=== PATIENT | female | born 1945 | race Caucasian/White ===

== ENCOUNTER → 2017-03-07 | Outpatient (CLI) | payer OTHER | END | disposition home or self-care (01) | LOC: PCVCCLINIC 14:54 | PROVIDERS: ATTEND Internal Medicine | DX: I10 Essential (primary) hypertension (principal); E78.5 Hyperlipidemia, unspecified; R93.1 Abnormal findings on diagnostic imaging of heart and coronary circulation; I25.10 Atherosclerotic heart disease of native coronary artery without angina pectoris; Z87.891 Personal history of nicotine dependence; Z79.82 Long term (current) use of aspirin; Z79.899 Other long term (current) drug therapy | CPT/HCPCS: 80061; 93005; G0463 ==

== ENCOUNTER → 2017-04-18 | Outpatient (CLI) | payer OTHER ==
[~2017-04-18] MED LIST: REGADENOSON 0.4 MG/5 ML DISP.SYRIN. IV ONE
--- NOTE | 2017-04-18 09:39 | PCVCIMAG ---
APPROVED REPORT Study performed: 04/18/2017 08:30:15 EXAM: Comprehensive 2D, Doppler, and color-flow Echocardiogram Status: routine Other Information Study Quality: Good Indications Hypertension/HDD Dyspnea, Abnormal Calcium Score 2D Dimensions IVSd: 8.22 (7-11mm)LVOT Diam: 20.31 (18-24mm) LVDd: 47.04 mm PWd: 8.63 (7-11mm)Ascending Ao: 29.61 (22-36mm) LVDs: 25.68 (25-40mm) Left Atrium: 36.94 (27-40mm) Aortic Root: 27.16 mm LV Single Plane 4CH: 63.19 % LV Single Plane 2CH: 61.53 %Myers's LVEF: 62.36 % Biplane EF: 62.2 % Volumes Left Atrial Volume (Systole) Single Plane 4CH: 41.09 mLSingle Plane 2CH: 39.00 mL LA ESV Index: 24.00 mL/m2 Aortic Valve AoV Peak Shiv.: 1.58 m/s AO Peak Gr.: 9.94 mmHgLVOT Max P.82 mmHg LVOT Max V: 1.10 m/s SARA Vmax: 2.25 cm2 Mitral Valve E/A Ratio: 0.8 MV Decel. Time: 218.17 ms MV E Max Shiv.: 0.86 m/s MV A Shiv.: 1.08 m/s IVRT: 83.04 ms TDI E/Medial E': 0.11 E': 10.00Medial E' Shiv.: 8.00 m/s Pulmonary Valve PV Peak Gr.: 3.11 mmHg Pulmonary Vein P Vein S: 0.79 m/sP Vein A: 0.31 m/s P Vein D: 0.55 m/sP Vein A Dur.: 41.5 msec P Vein S/D Ratio: 1.44 Tricuspid Valve TR Peak Shiv.: 2.90 m/s TR Peak Gr.: 33.74 mmHg Left Ventricle The left ventricle is normal size. There is normal LV segmental wall motion. There is normal left ventricular wall thickness. Left ventricular systolic function is normal. The left ventricular ejection fraction is within the normal range. LVEF is 60%. Grade I diastolic dysfunction Right Ventricle The right ventricle is normal size. The right ventricular systolic function is normal. Atria The left atrium size is mildly dilated The right atrium size is mildly dilated Aortic Valve The aortic valve is normal in structure. No aortic regurgitation is present. There is no aortic valvular stenosis. Mitral Valve The mitral valve is normal in structure. There is no mitral valve regurgitation noted. No evidence of mitral valve stenosis. Tricuspid Valve The tricuspid valve is normal in structure. Mild tricuspid regurgitation. Pulmonary artery pressure is 41mmhg. Pulmonic Valve The pulmonary valve is normal in structure. There is no pulmonic valvular regurgitation. Great Vessels The aortic root is normal in size. IVC is normal in size and collapses with >50% inspiration Pericardium There is no pericardial effusion. <Conclusion> Left ventricular systolic function is normal. There is normal LV segmental wall motion. LVEF is 60%. Grade I diastolic dysfunction Both atria are mildly dilated The aortic valve is normal in structure. No aortic valvular stenosis or insufficiency. The mitral valve is normal in structure, no mitral valve regurgitation noted. Pulmonary artery pressure of 35-40mmHg There is no pericardial effusion.
--- NOTE | 2017-04-18 15:58 | PCVCIMAG ---
APPROVED REPORT Exam: Nuclear Stress Test Indication: CAD , Dyspnea Patient Location: Out-Patient Stress Nurse: Magdalena Sahu RN, CHARLENE Bartholomew Tech:Yvonne Dagoberto [facility] Ht: 5 ft 3 in Wt: 170 lbs BSA: 1.80 m2 HR: 69 bpm BP: 168/81 mmHg BMI: 30.1 Rhythm: NSR Medical History Medical History: HTN, Hyperlipidemia, CAD Medications: ASA, Atorvastatin, Bisoprolol-HCTZ, Irbesartan, [place]-3 Allergies: No known drug allergies Cardiac Risk Factors: Age, Tobacco History (Former) Pretest Chest Pain Characteristics: No chest pain Exercise History: Physically active Physical Disabilities: Knees Meds Held (24 hrs): Bisoprolol-HCTZ NM EXAM: Myocardial Perfusion REST/STRESS Imaging Protocol: Rest Tc-99m/Stress Tc-99m 1 day Resting Data Rest SPECT myocardial perfusion imaging was performed in supine position 45 minutes following the intravenous injection of 10.9 mCi of Tc-99m Sestamibi. Time of rest injection: 0900 Date: 04/18/2017 Pharmacologic Stress Pharmacologic stress test was performed by injecting Regadenoson 0.4 mg IV push followed by the intravenous injection of 33.5 mCi of Tc-99m Sestamibi. Time of stress injection: 1000 Date: 04/18/2017 Administration Route: IV Administration Site: Right AC Gated Stress SPECT was performed 45 minutes after stress injection. The images were gated to evaluate regional wall motion and calculate left ventricular ejection fraction. Study Quality Study: Good Study Data Post stress, the left ventricular ejection was 75%.. SSS: 8 SRS: 6 SDS: 2 TID = 1.02. Perfusion No evidence of stress induced ischemia. There is a small area of moderately reduced uptake in the apical segment of the anteroseptal wall which is seen on the stress images as well as the resting images. This area thickens and moves normally and is most consistent with attenuation artifact or less likely prior injury. Wall Motion Normal left ventricular size and function with no regional wall motion abnormalities. Nuclear Conclusion No evidence of stress induced ischemia. Normal left ventricular size and function with no regional wall motion abnormalities. Post stress, the left ventricular ejection was 75%.. No prior study available for comparison. Interpreted by: Javier Sr MD Electronically Approved: 04/18/2017 15:18:56 Stress Test Details Stress Test: Pharmacologic stress was paired with low level exercise. Reason for pharmacologic stress test: . HR Resting HR: 75 bpmMax Heart Rate (APMHR): 147 bpm Max HR Achieved: 122 bpmTarget HR (85% APMHR): 124 bpm % of APMHR: 82 Recovery HR: 81 bpm BP Resting BP: 168/81 mmHg Max BP: 140/78 mmHg Recovery BP: 150/71 mmHg ECG Resting ECG: Sinus Rhythm Stress ECG: Sinus Tachycardia ST Change: None Arrhythmia: None Recovery ECG: Sinus Rhythm Recovery ST Change: None Recovery ST Deviation: 0 mm Clinical Reason for Termination: Completed protocol Stress Symptoms: Dyspnea Exercise duration: 4 min 00 sec Exercise capacity: 1.6 METs Symptoms resolved during recovery.No complications. Stress ECG Conclusion ECG: Non-ischemic Clinical: Non-ischemic <Conclusion> ECG: Non-ischemic Clinical: Non-ischemic
== END | disposition home or self-care (01) ==
LOC: PCVCIMAG 08:22
PROVIDERS: ATTEND Internal Medicine
DX: I36.1 Nonrheumatic tricuspid (valve) insufficiency (principal); I10 Essential (primary) hypertension
CPT/HCPCS: 78452; 93017; 93306; A9500; J2785

== ENCOUNTER → 2018-05-09 | Outpatient (CLI) | payer OTHER | END | disposition home or self-care (01) | LOC: PCVCIMAG 17:07 | DX: R60.0 Localized edema (principal); M79.89 Other specified soft tissue disorders | CPT/HCPCS: 93970 ==

== ENCOUNTER → 2018-05-21 | Outpatient (CLI) | payer OTHER | END | disposition home or self-care (01) | LOC: PCVCCLINIC 15:38 | DX: I10 Essential (primary) hypertension (principal); I25.10 Atherosclerotic heart disease of native coronary artery without angina pectoris; I87.2 Venous insufficiency (chronic) (peripheral); E78.00 Pure hypercholesterolemia, unspecified; R60.0 Localized edema; Z87.891 Personal history of nicotine dependence; Z79.899 Other long term (current) drug therapy | CPT/HCPCS: G0463 ==

== ENCOUNTER → 2018-05-27 | Outpatient (CLI) | payer OTHER ==
[~2018-05-27] MED LIST changes: +DIAZEPAM 10 MG TABLET. ONE; +IOHEXOL 300 MG/ML 100ML VIAL. ONE; +IV NORMAL SALINE 1000ML BAG 1,000 ML ONE; +LIDOCAINE 1% PF 30 ML VIAL. ONE; +MIDAZOLAM HCL/PF 2 MG/2 ML VIAL. ONE; -REGADENOSON 0.4 MG/5 ML DISP.SYRIN. IV ONE; +fentaNYL PF VIAL 100 MCG/2 ML VIAL ONE
--- NOTE | 2018-05-27 16:58 | PCVCINTER ---
EXAM: 1. INTRAVASCULAR ULTRASOUND OF THE INFERIOR VENA CAVA 2. INTRAVASCULAR ULTRASOUND OF THE RIGHT COMMON AND EXTERNAL ILIAC AND COMMON FEMORAL VEINS 3. INTRAVASCULAR ULTRASOUND OF THE LEFT COMMON AND EXTERNAL ILIAC AND COMMON FEMORAL VEINS 4. INFERIOR VENA CAVA AND BILATERAL ILIOFEMORAL VENOGRAPHY INDICATION: Iliofemoral venous obstruction. Chronic Venous Insufficiency Class 4a. Leg pain and swelling. Failed conservative therapy including medical grade compression stockings for at least 3 months. Venous hypertension chronic. PROCEDURE: Procedure and risks of IVC and ileofemoral venography and intravascular ultrasound, and venous stent placement as appropriate including bleeding, infection, venous thrombosis, stent migration/thrombosis, contrast-induced nephropathy requiring dialysis, stroke, and were discussed with the patient and consent obtained. Patient was given IV antibiotics. The patient's right neck and chest was prepped and draped in the normal sterile fashion. IV conscious sedation was used throughout the procedure with appropriate monitoring. Ultrasound was used to interrogate the neck and showed the internal jugular vein to be patent. A spot ultrasound image of the internal jugular vein was saved. Under ultrasound guidance access into the right internal jugular vein was obtained and an 8F sheath was placed to the level of the lower IVC. Catheter was placed into the lower IVC and IVC cavogram performed. Catheter was placed to the level of the right common femoral vein and right iliofemoral venogram obtained. Catheter was placed to the level of the left common femoral vein and left iliofemoral venogram was obtained. The 8 [place] intravascular ultrasound catheter was then placed to the level of the right common femoral vein and intravascular ultrasound evaluation of the right common femoral, right external iliac, and right common iliac veins was accomplished in a pull-back fashion. The 8 [place] intravascular ultrasound catheter was then placed to the level of the left common femoral vein and intravascular ultrasound evaluation of the left common femoral, left external iliac, and left common iliac veins was accomplished in a pull-back fashion. Intravascular ultrasound evaluation of the inferior vena cava was then accomplished in a pullback fashion. Sheath was removed and hemostasis obtained using manual pressure. FINDINGS: IVC INTRAVASCULAR ULTRASOUND: Normal vessel: 11.9 x 21.0 mm. Area = 214.1 sq. mm. RIGHT COMMON ILIAC VEIN INTRAVASCULAR ULTRASOUND: Normal vessel: 10.2 x 14.3 mm. Area = 115.5 sq. mm. RIGHT EXTERNAL ILIAC VEIN INTRAVASCULAR ULTRASOUND: Normal vessel: 9.5 x 16.7 mm. Area = 124.6 sq. mm. RIGHT COMMON FEMORAL VEIN INTRAVASCULAR ULTRASOUND: Normal vessel: 9.5 x 12.4 mm. Area = 96.9 sq. mm. LEFT COMMON ILIAC VEIN INTRAVASCULAR ULTRASOUND: Normal vessel: 9.3 x 15.0 mm. Area = 117.7 sq. mm. LEFT EXTERNAL ILIAC VEIN INTRAVASCULAR ULTRASOUND: Normal vessel: 8.3 x 14.9 mm. Area = 110.9 sq. mm. LEFT COMMON FEMORAL VEIN INTRAVASCULAR ULTRASOUND: Normal vessel: 10.9 x 12.7 mm. Area = 109.4 sq. mm. VENOGRAPHY: INFERIOR VENA CAVA: Vessel is patent without significant scarring, stenosis, or extrinsic compression. RIGHT COMMON ILIAC VEIN: Vessel is patent without significant scarring, stenosis, or extrinsic compression. RIGHT EXTERNAL ILIAC VEIN: Vessel is patent without significant scarring, stenosis, or extrinsic compression. RIGHT COMMON FEMORAL VEIN: Vessel is patent without significant scarring, stenosis, or extrinsic compression. LEFT COMMON ILIAC VEIN: Vessel is patent without significant scarring, stenosis, or extrinsic compression. LEFT EXTERNAL ILIAC VEIN: Vessel is patent without significant scarring, stenosis, or extrinsic compression. LEFT COMMON FEMORAL VEIN: Vessel is patent without significant scarring, stenosis, or extrinsic compression. IMPRESSION: Intravascular ultrasound and venographic evaluation of the inferior vena cava and the common and external iliac and common femoral veins bilaterally is within normal limits. No evidence of significant venous obstruction is identified. LOC:[id number]
--- NOTE | 2018-05-27 17:07 | PCVCIMAG ---
EXAM: BILATERAL LOWER EXTREMITY ARTERIAL DUPLEX INDICATION: Peripheral Arterial Disease. Leg pain. FINDINGS: Right Leg: Common femoral and profunda femoral arteries are patent. Superficial femoral artery and popliteal artery are patent. The anterior tibial and peroneal arteries show good patency throughout. Posterior tibial artery is small and occludes distally. Left Leg: Common femoral and profunda femoral arteries are patent. Superficial femoral artery and popliteal artery are patent. The anterior tibial and peroneal arteries show good patency throughout. Posterior tibial artery is small and occludes distally. 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 Otherwise no flow limiting stenosis in the right lower extremity. Occlusion of the left distal posterior tibial artery. Otherwise no flow limiting stenosis in the left lower extremity. LOC:[id number]
== END | disposition home or self-care (01) ==
LOC: PCVCINTER 12:04
PROVIDERS: ATTEND Nuclear Medicine Nuclear Cardiology
DX: I87.2 Venous insufficiency (chronic) (peripheral) (principal); I87.309 Chronic venous hypertension (idiopathic) without complications of unspecified lower extremity; I70.293 Other atherosclerosis of native arteries of extremities, bilateral legs
CPT/HCPCS: 36012; 37252; 37253; 75822; 75825; 76937; 93925; 99152; 99153; C1751; C1753; C1769; C1894; J1644; J2250; J3010; J7030; Q9967